=== PATIENT | male | born 1960 | race Caucasian/White ===

== ENCOUNTER 2016-09-01 10:27 | Emergency (ER) | payer OTHER ==
[~2016-09-01] VITALS: Ht 172.7 cm; Wt 109.5 kg
[2016-09-01 10:39] VITALS: BP 152/80
== END 2016-09-01 11:57 | disposition home or self-care (01) ==
LOC: EME 10:27
PROC: 3E0234Z Introduction of Serum, Toxoid and Vaccine into Muscle, Percutaneous Approach (ICD-10-PCS; principal; 2016-09-01)
DX: T15.02XA Foreign body in cornea, left eye, initial encounter (principal); Z23 Encounter for immunization
CPT/HCPCS: 99281; 99284

== ENCOUNTER 2017-09-03 06:20 | Emergency (ER) | payer OTHER ==
[~2017-09-03] VITALS: Ht 172.7 cm; Wt 105.2 kg
[2017-09-03 08:10] VITALS: BP 113/80
== END 2017-09-03 08:11 | disposition home or self-care (01) ==
LOC: EME 06:20
DX: M79.644 Pain in right finger(s) (principal); R20.2 Paresthesia of skin; S61.011D Laceration without foreign body of right thumb without damage to nail, subsequent encounter; W45.8XXD Other foreign body or object entering through skin, subsequent encounter; E78.5 Hyperlipidemia, unspecified; I10 Essential (primary) hypertension; F17.200 Nicotine dependence, unspecified, uncomplicated
CPT/HCPCS: 73140; 99281; 99283